=== PATIENT | male | born 1975 ===

== ENCOUNTER 2020-10-23 10:44 | Inpatient (IN) | payer OTHER ==
[~2020-10-23] VITALS: Ht 162.6 cm; Wt 96.7 kg
[2020-10-23] MEDS ORDERED: FENTANYL PF 100 MCG/2ML ONE (10:50)
[2020-10-23] MEDS ORDERED: BIVALIRUDIN 250 MG ONE ×2 (10:50→11:38)
[2020-10-23] MEDS ORDERED: MIDAZOLAM 1 MG/ML, 5ML ONE (10:50)
[2020-10-23] MEDS ORDERED: LIDOCAINE 2%, 20ML ONE (10:50)
--- NOTE | 2020-10-23 10:51 | NUR ---
Maddison (sister) - would like to be updated when possible - [phone]
[2020-10-23] MEDS ORDERED: ATORVASTATIN 80 MG TABLET PO SCH (11:00)
[2020-10-23] MEDS ORDERED: ATORVASTATIN 80 MG TABLET PO ONE (11:00)
--- NOTE | 2020-10-23 11:03 | NUR ---
LATE ENTRY: 1048 ARRIVAL. GABBY/RUBÉN PEREZ AT BEDSIDE. PT RECEIVED 324 ASA PO AND 4900 UNITS HEPARIN IV [employer] BY [place] [employer]. 80 MG ATORVASTATIN PO GIVEN HERE. PIV 18 RAC PATENT. PLACED ON 3LNC FOR SAT92%RA. PT A&OX4 GCS 15 PALE, SLIGHTLY DIAPHORETIC. TO DATABASE ARCHITECT ON MONITOR W TECH/CCU SUP. REPORT TO DATABASE ARCHITECT, CARE TRANSFERRED AT 1100.
[2020-10-23 11:07] LABS: BASOPHILS % (AUTO) 1 % (0-1); EOSINOPHILS % (AUTO) 0 % (1-7); LYMPHOCYTES % (AUTO) 15 % (22-44); MEAN CORPUSCULAR HEMOGLOBIN 31.8 pg (27.5-34.5); MEAN CORPUSCULAR HGB CONC 33.6 g/dL (33.2-36.2); MEAN PLATELET VOLUME 7.5 fL (7.4-10.4); MONOCYTES % (AUTO) 4 % (2-9); NEUTROPHILS % (AUTO) 81 % (42-75); PLATELET COUNT 218 x10^3/uL (130-400); RED BLOOD COUNT 5.34 x10^6/uL (4.38-5.82); RED CELL DISTRIBUTION WIDTH 14.1 % (9.4-14.8)
[2020-10-23] MEDS ORDERED: ATORVASTATIN 80 MG TABLET ONE (11:10)
[2020-10-23 11:23] LABS: INTERNATIONAL NORMALIZED RATIO 1.02 (0.93-1.1); PROTHROMBIN TIME 10.9 Seconds (9.6-11.5)
[2020-10-23] MEDS ORDERED: TICAGRELOR 90 MG TABLET ONE (11:29)
[2020-10-23] MEDS ORDERED: BIVALIRUDIN 250 MG in SODIUM CHLORIDE 0.9% 50 ML IV SCH (11:30)
[2020-10-23 12:02] LABS: ALANINE AMINOTRANSFERASE 56 U/L (12-78); ALBUMIN 3.5 g/dL (3.4-5.0); ANION GAP 12 mmol/L (5-15); CALCIUM 8.3 mg/dL (8.5-10.1); CHLORIDE 107 mmol/L (98-107); TRIGLYCERIDES 41 mg/dL (50-200); VLDL CHOLESTEROL 8 mg/dL (0-25)
[2020-10-23 12:04] LABS: ALKALINE PHOSPHATASE 105 U/L (45-117); BILIRUBIN,TOTAL 0.4 mg/dL (0.2-1.0); CHOL/HDL RATIO 4.3; CHOLESTEROL, TOTAL 211 mg/dL (140-239); CREATININE 0.75 mg/dL (0.7-1.3); HDL CHOL % 23 % (26-37); HDL CHOLESTEROL (DIRECT) 49 mg/dL (40-60); LDL CHOLESTEROL,CALCULATED 154 mg/dL (54-169); LDL/HDL RATIO 3.1 (0.5-3.0); TOTAL PROTEIN 8.3 g/dL (6.4-8.2)
[2020-10-23] MEDS: SODIUM CHLORIDE 0.9% 1,000 ML IV SCH ×2 (15:00→19:30)
[2020-10-23] MEDS: METOPROLOL TARTRATE 25 MG TAB PO SCH (17:03)
[2020-10-23] MEDS: TICAGRELOR 90 MG TABLET PO SCH (20:54)
[2020-10-23] MEDS: HYDROcodone/APAP 5/325 TABLET PO PRN ×2 (20:55→22:23)
[2020-10-23] MEDS: ATORVASTATIN 80 MG TABLET PO SCH (20:55)
[2020-10-23] MEDS ORDERED: ACETAMINOPHEN 325 MG TABLET PO PRN (21:00)
[2020-10-24] MEDS: SODIUM CHLORIDE 0.9% 1,000 ML IV SCH (02:08)
[2020-10-24] MEDS: ASPIRIN 81 MG TABLET EC PO SCH (05:59)
[2020-10-24] MEDS: METOPROLOL TARTRATE 25 MG TAB PO SCH (06:00)
[2020-10-24] MEDS: HYDROcodone/APAP 5/325 TABLET PO PRN (06:01)
[2020-10-24] MEDS: LOSARTAN 25MG TABLET PO SCH (08:52)
[2020-10-24] MEDS: TICAGRELOR 90 MG TABLET PO SCH ×2 (08:52→20:55)
[2020-10-24 10:50] VITALS: BP 118/82
[2020-10-24 13:46] VITALS: BP 109/71
[2020-10-24] MEDS ORDERED: INSU100C5 SQ-INSULIN (13:58)
[2020-10-24 17:17] VITALS: BP 115/83
[2020-10-24] MEDS: METOPROLOL SUCCINATE 25 MG TAB.ER.24H PO SCH (17:19)
[2020-10-24] MEDS: ATORVASTATIN 80 MG TABLET PO SCH (20:55)
[2020-10-24 20:58] VITALS: BP 94/61
[2020-10-25 02:00] VITALS: BP 96/68
[2020-10-25 05:44] VITALS: BP 104/70
[2020-10-25] MEDS: ASPIRIN 81 MG TABLET EC PO SCH (05:45)
[2020-10-25] MEDS: METOPROLOL SUCCINATE 25 MG TAB.ER.24H PO SCH (05:45)
[2020-10-25] MEDS: TICAGRELOR 90 MG TABLET PO SCH (09:09)
[2020-10-25] MEDS: LOSARTAN 25MG TABLET PO SCH (09:10)
[2020-10-25 09:11] VITALS: BP 109/77
[2020-10-25] MEDS ORDERED: ASPI81TA45 PO (10:21)
[2020-10-25] MEDS ORDERED: LOSA25TA25 PO (10:21)
[2020-10-25] MEDS ORDERED: TICA90TA PO (10:21)
[2020-10-25] MEDS ORDERED: ATOR-2 PO (10:21)
[2020-10-25] MEDS ORDERED: METO25TA91 PO (10:21)
[2020-10-25] MEDS ORDERED: METOPROLOL SUCCINATE 25 MG TAB.ER.24H PO SCH (18:00)
== END 2020-10-25 12:56 | disposition home or self-care (01) | DRG 247 ==
LOC: ED 11:07 → CSU 12:09 → 5SO 10-24 10:57
PROVIDERS: ADMIT Internal Medicine Cardiovascular Disease; ATTEND Internal Medicine Cardiovascular Disease
PROC: 027034Z Dilation of Coronary Artery, One Artery with Drug-eluting Intraluminal Device, Percutaneous Approach (ICD-10-PCS; principal; 2020-10-23)
PROC: 4A023N7 Measurement of Cardiac Sampling and Pressure, Left Heart, Percutaneous Approach (ICD-10-PCS; 2020-10-23)
PROC: B2111ZZ Fluoroscopy of Multiple Coronary Arteries using Low Osmolar Contrast (ICD-10-PCS; 2020-10-23)
PROC: B2151ZZ Fluoroscopy of Left Heart using Low Osmolar Contrast (ICD-10-PCS; 2020-10-23)
DX: I21.09 ST elevation (STEMI) myocardial infarction involving other coronary artery of anterior wall (principal); I10 Essential (primary) hypertension; E78.5 Hyperlipidemia, unspecified; I25.10 Atherosclerotic heart disease of native coronary artery without angina pectoris; I25.2 Old myocardial infarction; I25.41 Coronary artery aneurysm; Z87.891 Personal history of nicotine dependence
CPT/HCPCS: 93458; 99285; C8929; C9600; J3490; 71045; 80047; 80053; 80061; 84484; 85025; 85610; 85730; 87081; 93005; 99156; 99157; C1760; C1769; C1894; G0378; J0583; J2250; J3010; Q9957; C1725; C1874; C1887; Q9967